=== PATIENT | female | born 1945 | race Caucasian/White ===

== ENCOUNTER → 2018-12-16 | Outpatient (REF) | payer MEDICARE, OTHER ==
[~2018-12-16] MED LIST: CELEXA20 M1 PO; CIPROFLOXACN500 MG PO; COREG12.5 MG PO; FERROUS SULF325 M2 PO; FISH OIL1000 MG; FUROSEMIDE40 MG PO; GABAPENTIN300 MG PO; LEVAQUIN500 MG OR; LISINOPRIL5 MG PO; MEDDOSEPAK OR; MULTIVITAMIN OR; OMEPRAZOLE20 M1 PO; PIROXICAM20 MG OR; PRAVASTATIN40 MG PO; ROBITUSSIN DM OR; VISION FORMULA; VIT B12 PO; VIT E COMPLX400 UNIT OR; [UNRECOGNIZED DRUG - OTHER] OR
== END | disposition home or self-care (01) ==
LOC: DI 10:56
PROVIDERS: ATTEND Nurse Practitioner Family
DX: R05 Cough (principal)